=== PATIENT | female | born 1960 | race Caucasian/White ===

== ENCOUNTER 2019-04-19 08:45 | Day surgery (SDC) | payer BC ==
[~2019-04-19] VITALS: Ht 162.6 cm; Wt 91.3 kg
[~2019-04-19 08:45] MED LIST: ASPI81CH PO; CYCL10 PO; HYDACE5 PO; LEVSOD50 PO; LIOT25; LOVA40 PO
[2019-04-19] MEDS ORDERED: Azor 5-20 MG T1 EACH (09:11)
== END 2019-04-19 10:15 | disposition home or self-care (01) ==
LOC: ORSCSDS 08:45
PROVIDERS: Surgery
PROC: 0DJD8ZZ Inspection of Lower Intestinal Tract, Via Natural or Artificial Opening Endoscopic (ICD-10-PCS; principal; 2019-04-19 10:00)
DX: K92.1 Melena (principal); R19.4 Change in bowel habit; Z86.010 Personal history of colon polyps; I10 Essential (primary) hypertension; E78.5 Hyperlipidemia, unspecified; G47.30 Sleep apnea, unspecified; E66.01 Morbid (severe) obesity due to excess calories; Z68.36 Body mass index [BMI] 36.0-36.9, adult; Z87.891 Personal history of nicotine dependence; Z79.899 Other long term (current) drug therapy
CPT/HCPCS: J0330; J0461; J2405; J2704; J7120

== ENCOUNTER 2021-12-18 02:51 | Day surgery (SDC) | payer OTHER, BC ==
[~2021-12-18 02:51] MED LIST changes: +Azor 5-20 MG T1 EACH
[2021-12-18] MEDS ORDERED: EUTHYROX50 MCG PO (08:50)
[2021-12-18] MEDS ORDERED: TRAZ50 PO (08:51)
[2021-12-18] MEDS ORDERED: CALCITRIOL0.5 MC1 PO (08:52)
[2021-12-18] MEDS ORDERED: POTCHL20ER PO (08:53)
[2021-12-18] MEDS ORDERED: THERA-D2000 UNIT PO (08:53)
[2021-12-18] MEDS ORDERED: VITAMIN B125000 MC1 PO (08:54)
== END 2021-12-18 08:55 | disposition home or self-care (01) ==
LOC: ATC 02:51
DX: C73 Malignant neoplasm of thyroid gland (principal)
CPT/HCPCS: J3240

== ENCOUNTER 2023-09-11 06:05 | Day surgery (SDC) | payer OTHER, BC ==
[~2023-09-11] VITALS: Ht 159 cm; Wt 77.4 kg
[~2023-09-11 06:05] MED LIST changes: +AMLO5 PO; +CALCITRIOL0.5 MC1 PO; +EUTHYROX50 MCG PO; +MULVITA PO; +POTCHL20ER PO; +THERA-D2000 UNIT PO; +TRAZ50 PO; +VITAMIN B125000 MC1 PO
[2023-09-11] MEDS ORDERED: QUERCETIN COMP1 EACH PO (06:44)
[2023-09-11] MEDS ORDERED: MEKTOVI15 MG PO (06:44)
[2023-09-11] MEDS ORDERED: ONDA4ODT MM (06:45)
[2023-09-11 06:50] VITALS: BP 134/77
--- NOTE | 2023-09-11 07:13 | NUR ---
History, Chart, Medications and Allergies reviewed before start of procedure. Ambulatory in Day Surgery. Pre-Op teaching done. Pt verbalizes understanding. Patient confirms NPO status and agrees with scheduled surgery. Patient states colon prep results light yellow, translucent. Patient states she used SuTab for her prep. Lungs clear T/O to Auscultation. Patient States Post-Procedure ride home has been arranged.
--- NOTE | 2023-09-11 07:33 | NUR ---
09/11/23 0733 Brandi Salazar History, Chart, Medications and Allergies reviewed before start of procedure.MONITOR INTACT WITH CONTINUOUS PULSE OXIMETRY, CONTINUOUS END TITAL CO2, AND INTERMITTENT BLOOD PRESSURE.3-LEAD EKG REVIEWED WITH PHYSICIAN PRIOR TO START OF PROCEDURE.O2 VIA N/C INTACT THROUGHOUT SEDATION/PROCEDURE.SEE ANESTHESIA RECORD.
[2023-09-11 08:07] VITALS: BP 114/59
[2023-09-11 08:23] VITALS: BP 125/63
--- NOTE | 2023-09-11 09:07 | NUR ---
Discharge instructions reviewed with patient. Patient verbalizes understanding. Copy given to patient to take home. Patient States Post-Procedure ride home has been arranged. Discharged via wheelchair to private car for ride home.
== END 2023-09-11 08:40 | disposition home or self-care (01) ==
LOC: ORSCMMR 06:05 → ORD 07:30 → ORSCMMR 07:30
PROVIDERS: Surgery
PROC: 0DBH8ZX Excision of Cecum, Via Natural or Artificial Opening Endoscopic, Diagnostic (ICD-10-PCS; principal; 2023-09-11 07:30)
DX: R93.3 Abnormal findings on diagnostic imaging of other parts of digestive tract (principal); K62.5 Hemorrhage of anus and rectum; C73 Malignant neoplasm of thyroid gland; K52.9 Noninfective gastroenteritis and colitis, unspecified; K63.3 Ulcer of intestine; G47.33 Obstructive sleep apnea (adult) (pediatric); I10 Essential (primary) hypertension; Z87.891 Personal history of nicotine dependence; E78.5 Hyperlipidemia, unspecified; Z79.899 Other long term (current) drug therapy
CPT/HCPCS: 88305; J2704; J7120